=== PATIENT | female | born 1965 | race African-American/Black ===

== ENCOUNTER 2016-05-29 08:04 | Day surgery (SDC) | payer OTHER ==
[~2016-05-29 08:04] MED LIST: ASA5GR PO; IMU PO
[2016-05-29 09:03] LABS: BASOPHILS 0 %; EOSINOPHILS 1.9 %; EOSINOPHILS ABSOLUTE 0.05 10/3/uL (0.0-0.53); HEMATOCRIT 24.1 % (36.0-48.0); HEMOGLOBIN 8.1 g/dL (12.0-16.0); IMMATURE GRANULOCYTES 0.4 %; IMMATURE GRANULOCYTES ABSOLUTE 0.01 10/3/uL (0.0-0.11); LYMPHOCYTES 43.4 %; LYMPHOCYTES ABSOLUTE 1.12 10/3/uL (0.67-4.30); MEAN CORPUS HGB CONC 33.6 g/dL (32.0-36.0); MEAN CORPUSCULAR HEMOGLOB 34.5 pg (26.0-34.0); MEAN CORPUSCULAR VOLUME 102.6 fL (80-100); MEAN PLATELET VOLUME 9.9 fL (9.2-13.0); MONOCYTES 12.4 %; MONOCYTES ABSOLUTE 0.32 10/3/uL (0.21-1.20); NEUTROPHILS 41.9 %; NEUTROPHILS ABSOLUTE 1.08 10/3/uL (2.02-8.40); PLATELET COUNT 106 10/3/uL (150-400); RBC DISTRIBUTION WIDTH 18.5 % (12.0-16.0); RED CELL COUNT 2.35 10/6/uL (4.0-5.6); RETICULOCYTE COUNT 3.3 % (0.5-2.5); RETICULOCYTE COUNT ABSOLUTE 77.8 10/3/uL (20.2-119.8); WHITE BLOOD CELLS 2.6 10/3/uL (4.5-10.5)
[2016-05-29 09:04] LABS: MANUAL DIFF NO %
== END 2016-05-29 23:59 | disposition home or self-care (01) ==
LOC: SDC 08:04
PROVIDERS: Anesthesiology; Pathology Cytopathology
PROC: 07DR3ZX Extraction of Iliac Bone Marrow, Percutaneous Approach, Diagnostic (ICD-10-PCS; principal; 2016-05-29 11:00)
DX: D61.818 Other pancytopenia (principal); M06.9 Rheumatoid arthritis, unspecified; D86.9 Sarcoidosis, unspecified; D64.9 Anemia, unspecified; F41.9 Anxiety disorder, unspecified; Z86.73 Personal history of transient ischemic attack (TIA), and cerebral infarction without residual deficits; Z88.0 Allergy status to penicillin; Z88.8 Allergy status to other drugs, medicaments and biological substances; Z79.82 Long term (current) use of aspirin; Z79.899 Other long term (current) drug therapy; Z90.49 Acquired absence of other specified parts of digestive tract; Z98.890 Other specified postprocedural states
CPT/HCPCS: 82962; 84703; 85025; 85045; 87015; 87070; 87102; 87116; 88184; 88185; 88237; 88305; 88311; 88313; 88360; J3010